=== PATIENT | female | born 1995 | race Caucasian/White ===

== ENCOUNTER 2016-08-15 09:01 | Emergency (ER) | payer BC ==
[2016-08-15 09:10] VITALS: BP 113/79
[2016-08-15] MEDS ORDERED: ONDANSETRON HCL 8 MG TABLET PO ONE (09:17)
--- OUTSIDE RECORDS SUMMARY | 2016-08-15 09:24 | XMS REPORT | Continuity of Care Document ---
:1995 Author Organization [facility] ([facility]) Address [place] [address] Phone [phone] Care Team Providers Name Role Phone TerriLatrell Primary Care Provider [phone] Source Comments This disclosure is being made pursuant to the Care Everywhere program, applicable federal and state laws, and may not contain all informaitonavailable regarding this patient.[facility] ([facility]) Active Allergies and Adverse Reactions No Active Allergies Current Medications Prescription Sig. Disp. Refills Start Date End Date Status methylphenidate (CONCERTA) take 18 mg by Active 18 mg CR tablet mouth Every morning. LORATADINE PO take 1 Tab by Active mouth daily. Active Problems Problem Noted Date Scoliosis (and kyphoscoliosis), idiopathic 06/08/2008 Social History Tobacco Use Types Packs/Day Years Used Date Never Assessed Last Filed Vital Signs Vital Sign Reading Time Taken Blood Pressure - - Pulse - - Temperature - - Respiratory Rate - - Height 1.451 m (4' 9.13") 12/21/2008 11:35 AM CDT Weight 36.8 kg (81 lb 2.1 oz) 12/21/2008 11:35 AM CDT Body Mass Index 17.48 12/21/2008 11:35 AM CDT Oxygen Saturation - - Plan of Care Health Maintenance Due Date Last Done Comments Hepatitis B Vaccine (1 of 3 - Primary Series) 1996 HPV Vaccine (1 of 3 - Female/Unknown 3 Dose Series) 2007 Tdap Vaccine 2007 Meningococcal Vaccine (1 of 1) 2012 Lipid Disorder Screening 2014 MMR Vaccine 2014 Td Vaccine 2014 Varicella Vaccine (1 of 2 - Adult - No Evidence of 2014 Immunity) Influenza Vaccine: Seasonal (#1) 02/05/2016 Results from Last 3 Months Not on file
[2016-08-15] MEDS ORDERED: ONDANSETRON 4 MG TAB.RAPDIS ONE (09:28)
[2016-08-15 09:53] LABS: Urine Bilirubin Negative (NEGATIVE); Urine Blood Negative /ul (NEGATIVE); Urine Ketone 5 mg/dL (NEGATIVE); Urine Nitrite Negative (NEGATIVE); Urine Protein Negative (NEGATIVE); Urine Specific Gravity >=1.030 SP.GR. (1.005-1.010); Urine Urobilinogen Normal (NORMAL); Urine pH 5.5 pH (5.0-7.0)
[2016-08-15 10:04] LABS: Urine Appearance Slightly Cloudy; Urine Bacteria 3+; Urine Color Yellow; Urine RBC None Seen /hpf (0-5)
--- NOTE | 2016-08-15 10:18 | ERNOTE ---
Medical Problem HPI - Narrative Date of Service: 08/15/16 - General Chief Complaint: Nausea/Vomiting Time Seen by Provider: 08/15/16 09:13 Source: patient Exam Limitations: no limitations - Immun/Allergies/Home Medications Immunizations: IMMUNIZATION HX Immunizations Up to Date Yes History of Influenza Vaccine Yes Hx Pneumococcal Vaccination No Allergies/Adverse Reactions: Allergies No Known Allergies Allergy (Verified 08/15/16 09:10) Home Medications: HOME MEDICATIONS Cefuroxime Axetil [Ceftin] 250 mg PO Q12H #14 tab 08/15/16 [Last Taken Unknown] Ondansetron [Zofran Odt] 4 mg PO Q6H PRN #8 tab 08/15/16 [Last Taken Unknown] - History of Present History Narrative: patient presents to the ED for vomiting and diarrhea. She tells me she can't work because of this. She has been sick for 2 days. She relates she had a sandwich at [employer] but it tasted ok. She then started vomiting. Now sick for 2 days. She relates she has vomited approx 20 times. She has also now developed watery, non-bloody diarrhea. This diarrhea is now worse and the vomiting improved. No abdominal pain. Chills but no fever. No CP or SOB. No cough or ST. No other clear sick contacts. Nothign seems to make this better or worse. Has not seen anyone else for this. Timing: other - fluctuating intensity Severity: moderate Modifying Factors - (Improves): Present: other - nothing Modifying Factors - (Worsens): Present: other - nothing Review of Systems - Review of Systems Constitutional: Present: chills. Absent: fever EYE: Present: no symptoms reported ENT: Present: no symptoms reported Respiratory: Absent: shortness of breath, cough Cardiology: Absent: chest pain Gastrointestinal/Abdominal: Present: nausea, vomiting, diarrhea. Absent: abdominal pain Genitourinary: Absent: dysuria Musculoskeletal: Absent: back pain Skin: Absent: rash Neurological: Present: no symptoms reported - Patient's Past Medical History Patient History - Medical: No pertinent hx Patient History - Cardiac/Respiratory: No pertinent hx Patient History - Cancer: No Hx of Cancer Patient History - Surgical Procedures: Ear Tubes, T & A Patient History - Other: None LMP (Calendar): 08/01/16 - Social History Living Situations: home Abuse History: No History of abuse Psych History: No pertinent hx Smoking Status: Current every day smoker Have you smoked in the past 12 months: Yes Alcohol Use: none Drug Use: none - Immunizations Immunizations Up to Date: Yes Hx Pneumococcal Vaccination: No History of Influenza Vaccine: Yes Physical Exam - Physical Exam General Appearance: Present: alert, no apparent distress, other - Well hydrated , no distress, on-toxic, sitting on the edge of the bed. Eye Exam: Normal inspection: bilateral, PERRL: bilateral Ears, Nose, Throat: Present: normal ENT inspection, normal pharynx, other - moist mucous membranes. Absent: pharyngeal erythema, pharyngeal swelling, dry mucous membranes Neck: Present: normal inspection Respiratory: Present: no respiratory distress, normal breath sounds, no accessory muscle use, lungs clear Cardiovascular/Chest: Present: regular rate, rhythm Gastrointestinal/Abdominal: Present: normal bowel sounds, nontender, nondistended, soft, no organomegaly. 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 - Vital Signs Patient's Vital Signs:: I have reviewed the patient's vital signs. Vital Signs: Vital Signs 08/15/16 09:06 Temperature 35.4 C L Pulse Rate 104 H Respiratory 16 Rate Blood Pressure 113/79 O2 Sat by Pulse 97 Oximetry - Progress/Reassessment Chief Complaint: Nausea/Vomiting Progress Note-Subjective: 08/15/16 10:13 I do not feel patient needs IV fluids. Scant ketones noted on UA. No abdominal pain or tenderness. Nothign to suggest pyelo, kidney stone, sepsis or toxicity. I will treat her mild UTI and give antiemetics. She feels like going home. Likely gastroenteritis picture. I discussed warning signs and reasons to return as well as the need for close f/u. Departure - Departure Clinical Impression: UTI (urinary tract infection), Vomiting, Diarrhea Disposition: Home self-care Condition: Stable Instructions: Urinary Tract Infection, Adult, [id number] Additional Instructions: Rest. Fluids. Medications as directed. Return for fever, blood in stool, abdominal pain or if your condition worsens or changes in any way. Referrals: Tammy Sharma DO [Primary Care Provider] - Prescriptions: Cefuroxime Axetil [Ceftin] 250 mg PO Q12H #14 tab Ondansetron [Zofran Odt] 4 mg PO Q6H PRN #8 tab PRN Reason: Nausea
== END 2016-08-15 10:17 | disposition home or self-care (01) ==
LOC: ER 09:01
DX: N39.0 Urinary tract infection, site not specified (principal); R11.10 Vomiting, unspecified; R19.7 Diarrhea, unspecified; F17.210 Nicotine dependence, cigarettes, uncomplicated

== ENCOUNTER 2017-04-09 11:17 | Emergency (ER) | payer BC ==
[2017-04-09 11:28] VITALS: BP 120/80
[2017-04-09] MEDS ORDERED: IBUPROFEN 600 MG TABLET PO ONE (11:37)
--- NOTE | 2017-04-09 11:37 | ERNOTE ---
Lower Extremity HPI - General Lower Extremities Pain: foot: right Time Seen by Provider: 04/09/17 11:32 Source: patient Exam Limitations: no limitations - Immun/Allergies/Home Medications Immunizations: IMMUNIZATION HX Immunizations Up to Date Yes History of Influenza Vaccine Yes Hx Pneumococcal Vaccination Yes Allergies/Adverse Reactions: Allergies Allergy/AdvReac Type Severity Reaction Status Date / Time No Known Allergies Allergy Verified 04/09/17 11:28 Home Medications: HOME MEDICATIONS NK [No Home Medication] 04/09/17 [Last Taken Unknown] - History of Present Illness Narrative: Patient was walking down stairs last night, missed a step and fell, twisting her right foot under herself. She was able to ambulate and tried to make it to work but had too much pain, denies any other significant injury, no pain meds yet today. Review of Systems - Review of Systems Constitutional: Absent: recent illness, fever ENT: Absent: nose congestion, sore throat Respiratory: Absent: shortness of breath Cardiology: Absent: chest pain Gastrointestinal/Abdominal: Absent: nausea, abdominal pain Genitourinary: Present: no symptoms reported Musculoskeletal: Present: no symptoms reported Skin: Absent: rash Neurological: Absent: weakness, numbness - Patient's Past Medical History Patient History - Medical: No pertinent hx Patient History - Cardiac/Respiratory: No pertinent hx Patient History - Cancer: No Hx of Cancer Patient History - Surgical Procedures: Ear Tubes, T & A Patient History - Other: None LMP (females 10-50): 1 month LMP (Calendar): 08/01/16 - Social History Living Situations: home Abuse History: No History of abuse Psych History: No pertinent hx Smoking Status: Current every day smoker Cigarettes Packs Per Day: 0.5 Alcohol Use: none Drug Use: marijuana - Immunizations Immunizations Up to Date: Yes Hx Pneumococcal Vaccination: Yes History of Influenza Vaccine: Yes Physical Exam - Physical Exam General Appearance: Present: wd/wn, alert, no apparent distress Respiratory: Present: no respiratory distress, normal breath sounds, lungs clear Cardiovascular/Chest: Present: regular rate, rhythm, no murmur Peripheral Pulses: N=norm/S=strong/W=weak/B=bound/A=absent: Dorsalis-pedis (R): Normal Extremity Exam: Present: normal inspection, normal except - - tender over dorsum of foot mainly over 1-3rd metatarsal no deformity, no echymosis Neurological Exam: Present: alert, oriented, normal mood/affect, no motor/ sensory deficits Skin Exam: Present: normal color, warm/dry ED Progress - Vital Signs Patient's Vital Signs:: I have reviewed the patient's vital signs. Vital Signs: Vital Signs 04/09/17 11:24 Temperature 36.5 C Pulse Rate 82 Respiratory 14 Rate Blood Pressure 120/80 O2 Sat by Pulse 98 Oximetry - X-Ray X-Ray #1 X-Ray: foot - no fracture Interpretation: Interp. by me - Progress/Reassessment Chief Complaint: Ankle Injury/ Pain Progress Note-Subjective: 04/09/17 11:54 discussed Xray results Departure Clinical Impression: Sprain of foot, right Qualifiers: Encounter type: initial encounter Qualified Code(s): S93.601A - Unspecified sprain of right foot, initial encounter - Departure Disposition: Home self-care Condition: Good Instructions: Foot Sprain, Form - Excuse from Work, School, or Physical Activity Additional Instructions: take over the counter ibuprofen (200mg) 2-3 tablets every six hours as needed for pain call your doctor for follow up as needed
[2017-04-09] MEDS ORDERED: IBUPROFEN 600 MG TABLET ONE (11:47)
== END 2017-04-09 12:04 | disposition home or self-care (01) ==
LOC: ER 11:17
DX: S93.601A Unspecified sprain of right foot, initial encounter (principal); F17.210 Nicotine dependence, cigarettes, uncomplicated; W10.9XXA Fall (on) (from) unspecified stairs and steps, initial encounter